=== PATIENT | male | born 1950 | race Caucasian/White ===

== ENCOUNTER 2024-02-27 06:39 | Day surgery (SDC) | payer MEDICARE ==
[2024-02-27] MEDS ORDERED: fentaNYL 100 MCG/2 ML SDV ONE (07:15)
[2024-02-27] MEDS ORDERED: Propofol 200 MG/20 ML SDV ONE (07:15)
[2024-02-27] MEDS: Lactated Ringers 1,000 ML IV SCH (07:30)
== END 2024-02-27 10:50 | disposition home or self-care (01) ==
LOC: JP.SDS 06:39
PROVIDERS: ATTEND Surgery
DX: Z12.11 Encounter for screening for malignant neoplasm of colon (principal); K57.30 Diverticulosis of large intestine without perforation or abscess without bleeding; I10 Essential (primary) hypertension; I25.10 Atherosclerotic heart disease of native coronary artery without angina pectoris; E78.5 Hyperlipidemia, unspecified; Z95.1 Presence of aortocoronary bypass graft
CPT/HCPCS: G0121; J2704; J3010; J7120; 00812-QZ